=== PATIENT | female | born 1950 | race Caucasian/White ===

== ENCOUNTER 2018-04-13 10:57 | Emergency (ER) | payer MEDICARE ==
[2018-04-13] MEDS ORDERED: Aspirin TAB* 325 MG PO ONE (11:08)
--- NOTE | 2018-04-13 11:14 | ED ---
HPI Chest Pain - HPI Summary HPI Summary: This pt is a 67 y/o female presenting to [facility] c/o sudden onset of chest pain this morning, since then resolved. Pt reports she was woken up this morning between 05:30 and 06:00 by her chest pain. Chest pain is described as if you took two files and rubbed them against each other." She states her pain lasted minutes and then spontaneously resolved. Additionally notes she had palpitations and lightheadedness. Currently denies chest pain, but states "I just don't feel right." Denies SOB, diaphoresis, headache, blurry vision, visual changes, fever, chills, recent common cold. Denies diarrhea, constipation , burning with urination. 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 PMHx includes breast CA, knee surgery. She admits to alcohol use, but denies tobacco or drug use. - History of Current Complaint Time Seen by Provider: 04/13/18 11:07 Hx Obtained From: Patient Onset/Duration: Started Hours Ago, Resolved Timing: Lasting Minutes Initial Severity: Moderate Current Severity: None Pain Intensity: 0 Pain Scale Used: 0-10 Numeric Chest Pain Location: Diffuse Chest Pain Radiates: No Character: Other: - if you took two files and rubbed them against each other Aggravating Factor(s): Nothing Alleviating Factor(s): Spontaneous Resolution Associated Signs and Symptoms: Positive: Chest Pain, Lightheadedness, Palpitations, Other: - NEG: diarrhea, constipation, burning with urination. Negative: Vision Changes, Headaches, Shortness of Breath, Fever, Chills, Diaphoresis, URI - Allergy/Home Medications Allergies/Adverse Reactions: Allergies Allergy/AdvReac Type Severity Reaction Status Date / Time Penicillins Allergy Unknown Unknown Verified 01/05/18 11:04 Reaction Details Home Medications: Home Medications Tamoxifen TAB* [Nolvadex*] 10 mg PO DAILY 04/13/18 [History Confirmed 04/13/18] PMH/Surg Hx/FS Hx/Imm Hx Endocrine/Hematology History: Denies: Hx Diabetes Cardiovascular History: Denies: Hx Hypertension, Hx Pacemaker/ICD History: Denies: Hx Renal Disease Musculoskeletal History: Reports: Hx Rheumatoid Arthritis, Hx Osteoporosis Sensory History: Denies: Hx Hearing Aid Psychiatric History: Denies: Hx Panic Disorder - Cancer History Cancer Type, Location and Year: Breast Hx Chemotherapy: No Hx Radiation Therapy: Yes - END 1- - Surgical History Surgery Procedure, Year, and Place: OVARIAN CYST. Lt KNEE/plate& screws r/t broken knee. Right Breast Lumpectomy with sentinel node 12/31/15[facility] Infectious Disease History: No Infectious Disease History: Denies: Traveled Outside the [place] in Last 30 Days - Family History Family History: mother with colon CA. father with lung CA. - Social History Alcohol Use: Daily Substance Use Type: Reports: None Smoking Status (MU): Former Smoker Review of Systems Negative: Fever, Chills, Skin Diaphoresis Negative: Blurred Vision, Diplopia Negative: Other - NEG: recent common cold Positive: Palpitations, Chest Pain Negative: Shortness Of Breath Negative: Diarrhea, Other - NEG: constipation Negative: dysuria Neurological: Other - POS: lightheadedness Negative: Headache All Other Systems Reviewed And Are Negative: Yes Physical Exam - Summary Physical Exam Summary: VITAL SIGNS: Reviewed. GENERAL: Patient is a well-developed and nourished female who is lying comfortable in the stretcher. Patient is not in any acute respiratory distress. HEAD AND FACE: No signs of trauma. No ecchymosis, hematomas or skull depressions. No sinus tenderness. EYES: PERRLA, EOMI x 2, No injected conjunctiva, no nystagmus. EARS: Hearing grossly intact. Ear canals and tympanic membranes are within normal limits. MOUTH: Oropharynx within normal limits. NECK: Supple, trachea is midline, no adenopathy, no JVD, no carotid bruit, no c- spine tenderness, neck with full ROM. CHEST: Symmetric, no tenderness at palpation LUNGS: Clear to auscultation bilaterally. No wheezing or crackles. CVS: Regular rate and rhythm, S1 and S2 present, no murmurs or gallops appreciated. ABDOMEN: Soft, non-tender. No signs of distention. No rebound, no guarding, and no masses palpated. Bowel sounds are normal. EXTREMITIES: FROM in all major joints, no edema, no cyanosis or clubbing. NEURO: Alert and oriented x 3. No acute neurological deficits. Speech is normal and follows commands. SKIN: Dry and warm Triage Information Reviewed: Yes Vital Signs On Initial Exam: Initial Vitals Temp Pulse Resp BP Pulse Ox 97.7 F 72 16 136/78 100 04/13/18 11:07 04/13/18 11:07 04/13/18 11:07 04/13/18 11:07 04/13/18 11:07 Vital Signs Reviewed: Yes Diagnostics - Vital Signs Vital Signs Temp Pulse Resp BP Pulse Ox 04/13/18 11:07 97.7 F 72 16 136/78 100 - Laboratory Result Diagrams: 04/13/18 11:57 04/13/18 11:57 Lab Statement: Any lab studies that have been ordered have been reviewed, and results considered in the medical decision making process. - Radiology Chest XR Radiology Interpretation Completed By: Radiologist Summary of Radiographic Findings: IMPRESSION: Findings suggestive of COPD, no evidence for acute finding. Dr. Waldron has reviewed this report. - EKG 11:00 Cardiac Rate: NL - at 66 bpm EKG Rhythm: Sinus Rhythm Summary of EKG Findings: No ST elevations. Normal axis. Re-Evaluation - Re-Evaluation First Eval Re-Evaluation Time: 04:20 Comment: I reviewed the lab and chest XR results with the pt. She will be discharged home. Chest Pain Course/Dx - Course Assessment/Plan: This pt is a 67 y/o female presenting to [facility] c/o sudden onset of chest pain this morning, since then resolved. Pt reports she was woken up this morning between 05:30 and 06:00 by her chest pain. Chest pain is described as if you took two files and rubbed them against each other." She states her pain lasted minutes and then spontaneously resolved. Additionally notes she had palpitations and lightheadedness. Currently denies chest pain, but states "I just don't feel right." Denies SOB, diaphoresis, headache, blurry vision, visual changes, fever, chills, recent common cold. Denies diarrhea, constipation, burning with urination. 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 PMHx includes breast CA, knee surgery. She admits to alcohol use, but denies tobacco or drug use. Test results without any significant abnormality except for BNP of 147. Troponin 1 is 0.00. EKG shows a normal sinus rhythm without any ST elevation. Chest x-ray impression negative for an acute pathology. D-dimer is negative therefore no suspicion for PE. Second troponin is also negative therefore since the patient is asymptomatic the patient will be discharged home with follow-up from her PCP. Patient is hemodynamically stable, alert and oriented 3. I discussed all the findings and test results with the patient. Patient was instructed to return to the emergency room immediately if any of the symptoms return or worsens. Plan of care was discussed with the patient and understands and agrees. All questions were answered at patient satisfaction. There were no further complaints or concerns. Lung exam before discharge: CTA B/L. Good air exchange. No wheezing or crackles heard. CVS: S1 and S2 present. No murmurs appreciated. Patient is alert and oriented x 3. Patient is hemodynamically stable. Patient will be discharged home with follow up from her PCP in the next 2-3 days. - Chest Pain Differential Diagnosis/HQI/PQRI: Acute NM, ACS, Angina, CHF, Chest Wall, GI Disease, Lower Respiratory Infection - Diagnoses Provider Diagnoses: Atypical chest pain Discharge - Sign-Out/Discharge Documenting (check all that apply): Patient Departure - Discharge home - Discharge Plan Condition: Stable Disposition: HOME Patient Education Materials: Chest Pain (ED) Referrals: Yg Zaldivar MD [Primary Care Provider] - Additional Instructions: FOLLOW UP WITH YOUR PRIMARY CARE PROVIDER IN 2-3 DAYS. RETURN TO THE ED FOR ANY NEW OR WORSENING SYMPTOMS. - Billing Disposition and Condition Condition: STABLE Disposition: Home - Attestation Statements Document Initiated by Scribe: Yes Documenting Scribe: Idalia Monique Provider For Whom Sheryl is Documenting (Include Credential): Juan Alberto Waldron MD Scribdaniel Attestation: Idalia Kang, scribed for Juan Alberto Waldron MD on 04/14/18 at 0716. Scribe Documentation Reviewed: Yes Provider Attestation: The documentation as recorded by the Idalia perea accurately reflects the service I personally performed and the decisions made by me, Juan Alberto Waldron MD Status of Scribdaniel Document: Viewed
[2018-04-13 12:11] LABS: ABS Basophils 0 10^3/ul (0-0.2); ABS Eosinophils 0.1 10^3/ul (0-0.6); ABS Lymphocytes 1.2 10^3/ul (1.0-4.8); ABS Monocytes 0.5 10^3/ul (0-0.8); ABS Neutrophils 3.7 10^3/ul (1.5-7.7); ABS Nucleated RBC 0 10^3/ul; Eosinophil % 1.5 %; Hematocrit 33 % (35-47); Hemoglobin 11.3 g/dl (12.0-16.0); Lymphocyte % 21.7 %; Mean Corpuscular HGB Conc 35 g/dl (31-36); Mean Corpuscular Hemoglobin 31 pg (27-31); Mean Corpuscular Volume 91 fL (80-97); Mean Platelet Volume 9.4 fL (7.4-10.4); Nucleated Red Blood Cells % 0; Platelet Count 203 10^3/ul (150-450); Red Blood Count 3.61 10^6/ul (4.00-5.40); Red Cell Distribution Width 13 % (10.5-15); White Blood Count 5.5 10^3/ul (3.5-10.8)
[2018-04-13 12:22] LABS: Activated Partial Thrombo Time 29.1 seconds (26.0-36.3); INR 0.9 (0.77-1.02)
[2018-04-13 12:37] LABS: Albumin 3.3 g/dL (3.2-5.2); Albumin/Globulin Ratio 0.9 (1-3); Calcium 8.8 mg/dL (8.6-10.3); EGFR Non-African American 104.3 (>60); Globulin 3.8 g/dL (2-4); Potassium 3.8 mmol/L (3.5-5.0); Total Bilirubin 0.4 mg/dL (0.2-1.0); Total Protein 7.1 g/dL (6.4-8.9)
[2018-04-13 13:23] LABS: TSH (Thyroid Stimulating Horm) 3.77 mcIU/mL (0.34-5.60)
[2018-04-13 14:46] LABS: Urine Appearance Clear; Urine Bilirubin Negative (Negative); Urine Blood Negative (Negative); Urine Color Straw; Urine Glucose Negative (Negative); Urine Ketones Negative (Negative); Urine Nitrite Negative (Negative); Urine Protein Negative (Negative); Urine Specific Gravity 1.009 (1.010-1.030); Urine Urobilinogen Negative (Negative)
[2018-04-13 16:29] VITALS: BP 109/66
== END 2018-04-13 16:29 | disposition home or self-care (01) ==
LOC: ED 10:57
DX: R07.89 Other chest pain (principal); R42 Dizziness and giddiness; R00.2 Palpitations; Z87.891 Personal history of nicotine dependence; Z88.0 Allergy status to penicillin
CPT/HCPCS: 36415; 71045; 80053; 81003; 82550; 82553; 83605; 83735; 83880; 84443; 84484; 85025; 85379; 85610; 85730; 93005; 99283

== ENCOUNTER 2018-07-21 12:09 | Emergency (ER) | payer MEDICARE ==
--- NOTE | 2018-07-21 12:23 | UC ---
Skin Complaint HPI - HPI Summary HPI Summary: 67 yo female presents with tick bite to right neck. She tells me that she was gardening a lot yesterday and thinks that is when she obtained the tick. She had a friend try to remove it, but was unsuccessful. Mild itching at the site, but no other symptoms at this time. - History of Current Complaint Time Seen by Provider: 07/21/18 12:17 Stated Complaint: TICK BITE Hx Obtained From: Patient Onset/Duration: Sudden Onset Current Severity: None - Allergy/Home Medications Allergies/Adverse Reactions: Allergies Allergy/AdvReac Type Severity Reaction Status Date / Time Penicillins Allergy Unknown Unknown Verified 07/21/18 12:18 Reaction Details PMH/Surg Hx/FS Hx/Imm Hx - Additional Past Medical History Additional PMH: BRCA - Surgical History Surgical History: Yes Surgery Procedure, Year, and Place: OVARIAN CYST. Lt KNEE/plate& screws r/t broken knee. Right Breast Lumpectomy with sentinel node 12/31/15[facility] - Family History Family History: mother with colon CA. father with lung CA. - Social History Lives: With Family Alcohol Use: Daily Substance Use Type: None Smoking Status (MU): Former Smoker Review of Systems All Other Systems Reviewed And Are Negative: Yes Constitutional: Positive: Negative Skin: Positive: Other - tick right neck Respiratory: Positive: Negative Cardiovascular: Positive: Negative Neurovascular: Positive: Negative Neurological: Positive: Negative Psychological: Positive: Negative Physical Exam - Summary Physical Exam Summary: GENERAL: NAD. WDWN. No pain distress. SKIN: Right neck with small tick embedded within the skin. Not engorged. Faint surrounding erythema. NTTP, no bleeding or discharge. CHEST: No accessory muscle use. Breathing comfortably and in no distress. CV: Pulses intact. Cap refill <2seconds NEURO: Alert. PSYCH: Age appropriate behavior. Triage Information Reviewed: Yes Vital Signs: Vital Signs: Temp Pulse Resp BP Pulse Ox 98.1 F 67 16 118/71 100 07/21/18 12:19 07/21/18 12:19 07/21/18 12:19 07/21/18 12:19 07/21/18 12:19 Vital Signs Reviewed: Yes Course/Dx - Course Course Of Treatment: Full tick removed with tick twisters. Tick not engorged and was likely attached <24 hours therefore no indication for prophylactic doxy at this time. Advised to monitor for signs/symptoms of lyme disease and f/u if she notices these. - Diagnoses Provider Diagnosis: Tick bite Discharge - Sign-Out/Discharge Documenting (check all that apply): Patient Departure All imaging exams completed and their final reports reviewed: No Studies - Discharge Plan Condition: Stable Disposition: HOME Patient Education Materials: Tick Bite (ED) Referrals: Yg Zaldivar MD [Primary Care Provider] - Additional Instructions: If you develop a fever, shortness of breath, chest pain, new or worsening symptoms - please call your PCP or go to the ED. TICK BITE: You have been bitten by a tick. Once the tick is removed, these "bites" usually cause no problems. Tick fever, tick paralysis, [place] Spotted fever, and Lyme disease are uncommon -- but you should mention this tick bite to your doctor if you develop unusual symptoms in the next several weeks. If you develop any of the following, please see your physician promptly: (1) Fever, chills, or generalized malaise associated with a headache. (2) A red round area at the site of the bite (or elsewhere) (3) Joint pain, joint swelling or generalized weakness. (4) Redness, swelling, or drainage at the site of the bite. - Billing Disposition and Condition Condition: STABLE Disposition: Home
[2018-07-21 12:26] VITALS: BP 118/71
== END 2018-07-21 12:31 | disposition home or self-care (01) ==
LOC: UCEAST 12:09
DX: S10.96XA Insect bite of unspecified part of neck, initial encounter (principal); W57.XXXA Bitten or stung by nonvenomous insect and other nonvenomous arthropods, initial encounter; Y93.H2 Activity, gardening and landscaping; Y92.096 Garden or yard of other non-institutional residence as the place of occurrence of the external cause; Z88.0 Allergy status to penicillin; Z87.891 Personal history of nicotine dependence
CPT/HCPCS: 99211; G0463